=== PATIENT | male | born 2000 | race Caucasian/White ===

== ENCOUNTER 2025-06-19 12:43 | Emergency (ER) | payer SELFPAY ==
[2025-06-19 12:59] VITALS: BP 115/66; PULSE 64; TEMP 36.8; O2SAT 99; BMI 24.1
--- NOTE | 2025-06-19 13:55 | ED_ITS ---
HPI - Allergic Reaction General: Chief complaint: Allergic Reaction Stated complaint: Stung by Yellow Jacket allergic Time Seen by Provider: 06/19/25 13:05 Source: patient Mode of arrival: ambulatory Limitations: no limitations History of Present Illness: HPI narrative: Patient is a 24-year-old male who presents the emergency department after being stung to the periorbital region by a yellowjacket while at work. States he visualized a small yellow/black insect and believe there was a yellowjacket of which he notes he is highly allergic to. He states this occurred while at work at approximately 1000. It has been 3 hours since the incident, he denies any respiratory distress, tongue swelling, throat closure, visual changes, or any other concerning symptoms or signs of anaphylaxis. He took some Benadryl prior to coming to the emergency department and states this did help quite a bit. No other symptoms, his vitals are stable at this time. 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 Associated symptoms: Reports facial swelling and itching; Deny abdominal pain, nausea, tongue swelling or vomiting Severity: mild Treatment prior to arrival: benadryl Related Data Home Medications ?Medication ?Instructions ?Recorded ?Confirmed diphenhydramine HCl 25 mg tablet 25 mg PO TID PRN Tunde rgic Reaction 06/19/25 06/19/25 (Benadryl Allergy) Previous Rx's ?Medication ?Instructions ?Recorded prednisone 20 mg tablet 60 mg (3 x 20 mg) PO ONCE 5 days 06/19/25 #15 tabs Allergies Allergy/AdvReac Type Severity Reaction Status Date / Time No Known Allergies Allergy Verified 06/19/25 13:04 Review of Systems General: Reports: 10 or more systems reviewed and unremarkable except in HPI and below Const: Denies: fever(s) or chills Card: Denies: chest pain Resp: Denies: dyspnea GI: Denies: abdominal pain, nausea, vomiting or diarrhea Musc: Denies: extremity pain or joint pain Skin/Breast: Reports: other (yellow jacket sting); Denies: rash, skin pain, skin tenderness or new lesions Neuro: Denies: headache(s) All/Imm: Reports: facial swelling; Denies: urticaria, throat swelling, tongue swelling or acute wheezing Physical Exam Const: COMMON NORMALS: no acute distress, average body habitus, patient oriented x3, no limitations, healthy appearing, alert and well nourished HENMT: COMMON NORMALS: normocephalic and atraumatic HEAD & SCALP: normocephalic and atraumatic OTHER: No angioedema or tongue or throat swelling Eye: OTHER: Periorbital edema and erythema noted. Conjunctive is normal, no pain with extraocular movements. No evidence that there is any retained stinger to the periorbital region. Neck/C-Spine: COMMON NORMALS: full ROM, no lymphadenopathy, supple and no meningeal signs Resp: COMMON NORMALS: normal respiratory effort, No use of accessory muscles and clear to auscultation bilaterally AUSCULTATION: clear to auscultation bilaterally OTHER: No respiratory distress, no wheezing Cardio: COMMON NORMALS: regular rate and regular rhythm RATE: regular rate RHYTHM: regular rhythm Extremity: COMMON NORMALS: full ROM and capillary refill normal Neuro: COMMON NORMALS: patient oriented x3, moves all extremities, no focal motor deficits and no sensory deficits noted SENSORIUM/ORIENTATION: Yes alert MENINGEAL SIGNS: Yes no meningeal signs Skin: COMMON NORMALS: turgor normal NARRATIVE SKIN EXAM: No hives GENERAL SKIN EXAM: turgor normal Course Vital Signs: Vital signs: Vital Signs Temperature 98.2 F 06/19/25 12:59 Pulse Rate 64 06/19/25 12:59 Blood Pressure 115/66 06/19/25 12:59 Pulse Oximetry 99 06/19/25 12:59 Oxygen Delivery Me thod Room Air 06/19/25 12:59 MDM - Allergic Reaction Medical Decision Making Patient presented after being stung to the periorbital region by what he believed was a yellowjacket, notes history of allergy to yellowjacket venom. The vitals are stable on arrival, no respiratory distress and this incident occurred approximately 3 hours prehospital. No warranting epinephrine at this time, ophthalmologic examination is very reassuring and suspect that all of this is subcutaneous periorbital edema from the localized venom. He is monitored for short period here in the emergency department, will be started on prednisone for home for the amount of swelling and his history of allergy, and he is encouraged to do cool compress and antihistamines for further symptomatic management. There is no need for further workup here in the emergency department, he is given general return precautions. No radiology studies performed this visit Discharge Plan Discharge Patient Disposition: Home Clinical Impression: Allergic reaction Condition: Stable Prescriptions: New prednisone 20 mg tablet 60 mg PO ONCE 5 Days Qty: 15 0RF No Action diphenhydramine HCl [Benadryl Allergy] 25 mg Tablet 25 mg PO TID PRN (Reason: Allergic Reaction) Discharge Orders: Discharge ED (Routine); Ordered 06/19/25 Ordered By: Jani Arredondo Patient Instructions: Patient Portal & Edgardo Instructions Activity Restrictions/Additional Instructions: Periorbital Sting Discharge Discharge Instructions: Periorbital Yellowjacket Sting with Edema Diagnosis: Large local allergic reaction to yellowjacket sting, periorbital region. Ophthalmologic exam normal; no visual acuity loss. No evidence of anaphylaxis or orbital cellulitis. Treatment Initiated: - Prednisone 60 mg PO daily x 5 days for significant periorbital edema, consistent with expert consensus for severe local reactions. Additional Symptomatic Management: - Cold compresses/ice packs to the affected area for 15?20 minutes every 2?3 hours to reduce swelling and pain. - Oral H1-antihistamines (e.g., cetirizine, fexofenadine) for pruritus and mild swelling. - Oral analgesics (acetaminophen or ibuprofen) for pain control. - Topical corticosteroid cream may be considered for localized pruritus, though evidence for efficacy in hymenoptera stings is extrapolated from mosquito bite data. Other Treatment Options for Periorbital Edema: - Most cases resolve with symptomatic care alone. Oral corticosteroids are reserved for severe or functionally impairing edema. - Venom immunotherapy is not indicated unless there is a history of frequent, u navoidable stings with large local reactions and detectable venom-specific IgE. - Antibiotics are not indicated unless there is clear evidence of secondary infection (e.g., fever, purulent discharge, progressive erythema). - Epinephrine autoinjector is not routinely prescribed for isolated large local reactions, but may be considered if there is a history of systemic reactions or unavoidable exposure risk. Strict Return Precautions: - Return immediately or seek emergency care for any of the following: - New or worsening visual changes (blurred vision, double vision, loss of vision) - Increasing pain, redness, or swelling beyond the periorbital area - Fever, chills, or systemic symptoms - Difficulty breathing, swallowing, or speaking - Tongue or throat swelling - Signs of anaphylaxis: generalized hives, wheezing, hypotension, syncope - Proptosis, restricted eye movement, or pain with eye movement (suggestive of orbital cellulitis) Follow-Up: - Routine follow-up with primary care or industrial safety and health specialist if symptoms persist beyond 7 days or if recurrent reactions occur. - Ophthalmology follow-up if any ocular symptoms develop. Prevention: - Avoidance of stinging insects and use of protective clothing outdoors. - Education regarding recognition of systemic allergic reactions and when to use emergency services. Patient Education: - Most large local reactions are self-limited and resolve within several days. - Oral corticosteroids may hasten resolution of severe edema, but definitive evidence is limited. - Antibiotics are rarely needed unless infection is suspected. Medication Instructions: - Take prednisone as prescribed. Do not abruptly discontinue unless instructed. - Use antihistamines and analgesics as needed for comfort. Contact Information: - [Insert clinic/ED contact number] - [Insert instructions for after-hours care] Summary: The patient has a large local allergic reaction to a yellowjacket sting in the periorbital region, managed with oral corticosteroids and supportive care. No evidence of anaphylaxis or orbital involvement. Strict return precautions provided for early recognition of complications. Print Language: Khmer Coding Level of Care Code ED Director Of Operations for Jean-Claude Hughes
== END 2025-06-19 13:51 | disposition home or self-care (01) ==
PROVIDERS: Emergency Provider Physician Assistant
DX: T63.461A Toxic effect of venom of wasps, accidental (unintentional), initial encounter (principal); X58.XXXA Exposure to other specified factors, initial encounter
CPT/HCPCS: 99282